=== PATIENT | female | born 1980 | race Asian ===

== ENCOUNTER 2017-04-20 18:43 | Inpatient (IN) | payer MEDICAID, OTHER ==
[~2017-04-20] VITALS: Ht 167.6 cm; Wt 50.0 kg
[~2017-04-20 18:43] MED LIST: QUET100T PO; QUET400T3 PO
[2017-04-20] MEDS ORDERED: ONDANSETRON HCL 4 MG/2 ML VIAL IVP ONE (20:15)
[2017-04-20] MEDS ORDERED: MORPHINE SULFATE 4 MG/ML SYRINGE IVP ONE (20:15)
[2017-04-20 20:21] LABS: RED BLOOD CELL COUNT(AUTO) 3.94 MIL/uL (4.00-5.20); WHITE BLOOD COUNT (AUTO) 7.1 K/uL (4.5-11.0)
[2017-04-20 20:22] LABS: ANION GAP 12 mmol/L (8-16); BASOPHILS % (AUTO) 0.6 % (0.0-2.0); CALCIUM, TOTAL 9.8 mg/dL (8.8-10.5); CARBON DIOXIDE 24 mmol/L (22-29); CHLORIDE 103 mmol/L (98-107); CREATININE 0.62 mg/dL (0.60-1.30); EOSINOPHILS % (AUTO) 0.79 % (1.0-6.0); GLOMERULAR FILTR. RATE CALC > 60 mL/min (>60); HEMATOCRIT 39.9 % (36-46); LYMPHOCYTES % (AUTO) 23.2 % (22.0-44.0); MEAN CORPUSCULAR HEMOGLOBIN 32.9 pg (26.0-34.0); MEAN CORPUSCULAR HGB CONC 32.5 G/dL (31.0-37.0); MEAN CORPUSCULAR VOLUME 101 fL (80-100); MONOCYTES % (AUTO) 7.6 % (2.0-9.0); NEUTROPHILS % (AUTO) 67.8 % (40.0-70.0); PLATELET COUNT (AUTO) 279 K/uL (150-450); POTASSIUM 3.8 mmol/L (3.5-5.1); RED CELL DISTRIBUTION WIDTH 14.1 % (11.5-14.5); SODIUM SERUM 139 mmol/L (136-145); UREA NITROGEN, BLOOD 14 mg/dL (7-18)
[2017-04-20 20:23] LABS: BASOPHILS # (AUTO) 0.04 K/uL (0.00-0.20); EOSINOPHILS # (AUTO) 0.06 K/uL (0.00-0.70); LYMPHOCYTES # (AUTO) 1.6 K/uL (1.0-4.8); MONOCYTES # (AUTO) 0.5 K/uL (0.1-1.0); NEUTROPHILS # (AUTO) 4.8 K/uL (1.8-7.7); RBC MORPHOLOGY COMMENT ABNORMAL RBC MORPH
[2017-04-20 20:29] LABS: ALANINE AMINOTRANSFERASE 13 U/L (12-78); ALBUMIN 4.4 g/dL (3.4-5.0); ASPARTATE AMINOTRANSFERASE 21 U/L (15-37); BILIRUBIN,TOTAL 0.4 mg/dL (0.1-1.0); TOTAL PROTEIN, SERUM 8.2 g/dL (6.4-8.2)
[2017-04-20] MEDS ORDERED: QUET100T PO (20:37)
[2017-04-20] MEDS ORDERED: LIDO700A15 TD (20:42)
[2017-04-20] MEDS ORDERED: TRAM50TA4 PO (20:42)
[2017-04-20] MEDS ORDERED: DOCU250C91 PO (20:42)
[2017-04-20] MEDS ORDERED: MULT-412 PO (20:42)
[2017-04-20 21:12] LABS: APPEARANCE,URINE CLEAR (CLEAR); GLUCOSE, URINE (UA) NEGATIVE (NEGATIVE); KETONES,URINE NEGATIVE (NEGATIVE); LEUKOCYTE ESTERASE ,URINE NEGATIVE (NEGATIVE); OCCULT BLOOD,URINE NEGATIVE (NEGATIVE); PH,URINE 5.5 (5.0-8.0); PROTEIN,URINE NEGATIVE (NEGATIVE)
[2017-04-20 21:20] LABS: ADD UA MICROSCOPIC NO
[2017-04-20] MEDS ORDERED: HYDROCODONE/ACETAMINOPHEN 5-325 MG TABLET PO PRN (21:30)
[2017-04-20] MEDS ORDERED: ACETAMINOPHEN 325 MG TABLET PO PRN (21:30)
[2017-04-20] MEDS ORDERED: 0.9% SODIUM CHLORIDE 10 ML SYRINGE IVP PRN (21:30)
[2017-04-20 22:00] VITALS: BP 106/66
[2017-04-20] MEDS ORDERED: INFLUENZA VIRUS VACCINE QVS 2017-18 (3YR+)/PF 60 MCG/0.5 ML SYRINGE IM ONE (22:15)
[2017-04-20] MEDS: MORPHINE SULFATE 2 MG/ML SYRINGE IVP PRN ×2 (22:21→22:23)
[2017-04-20] MEDS ORDERED: LIDOCAINE HCL 5% TRANSDERMAL PATCH TD SCH (23:00)
[2017-04-20] MEDS ORDERED: TraMADol HCL 50 MG TABLET PO PRN (23:00)
[2017-04-21] MEDS: QUEtiapine FUMARATE 100 MG TABLET PO SCH ×2 (00:09→20:44)
[2017-04-21] MEDS ORDERED: 0.9% SODIUM CHLORIDE 10 ML SYRINGE IVP PRN (02:15)
[2017-04-21 04:34] VITALS: BP 97/55
[2017-04-21 06:16] LABS: BASOPHILS % (AUTO) 0.7 % (0.0-2.0); EOSINOPHILS % (AUTO) 2.5 % (1.0-6.0); HEMOGLOBIN 11.9 g/dL (12.0-16.0); LYMPHOCYTES # (AUTO) 1.7 K/uL (1.0-4.8); LYMPHOCYTES % (AUTO) 33.7 % (22.0-44.0); MEAN CORPUSCULAR HEMOGLOBIN 33.8 pg (26.0-34.0); MEAN CORPUSCULAR HGB CONC 33.9 G/dL (31.0-37.0); MEAN CORPUSCULAR VOLUME 100 fL (80-100); MONOCYTES # (AUTO) 0.5 K/uL (0.1-1.0); MONOCYTES % (AUTO) 8.8 % (2.0-9.0); NEUTROPHILS # (AUTO) 2.8 K/uL (1.8-7.7); NEUTROPHILS % (AUTO) 54.3 % (40.0-70.0); PLATELET COUNT (AUTO) 234 K/uL (150-450); RED CELL DISTRIBUTION WIDTH 13.7 % (11.5-14.5); WHITE BLOOD COUNT (AUTO) 5.2 K/uL (4.5-11.0)
[2017-04-21 06:47] LABS: ALANINE AMINOTRANSFERASE 17 U/L (12-78); ALBUMIN 3.7 g/dL (3.4-5.0); ANION GAP 7 mmol/L (8-16); ASPARTATE AMINOTRANSFERASE 19 U/L (15-37); BILIRUBIN,TOTAL 0.5 mg/dL (0.1-1.0); CALCIUM, TOTAL 9.1 mg/dL (8.8-10.5); CARBON DIOXIDE 29 mmol/L (22-29); CHLORIDE 104 mmol/L (98-107); CREATININE 0.72 mg/dL (0.60-1.30); GLOMERULAR FILTR. RATE CALC > 60 mL/min (>60); POTASSIUM 3.7 mmol/L (3.5-5.1); SODIUM SERUM 140 mmol/L (136-145); TOTAL PROTEIN, SERUM 6.8 g/dL (6.4-8.2); UREA NITROGEN, BLOOD 13 mg/dL (7-18)
[2017-04-21 08:05] VITALS: BP 107/55
[2017-04-21] MEDS: DOCUSATE SODIUM 250 MG CAPSULE PO SCH ×2 (09:03→20:44)
[2017-04-21] MEDS: LIDOCAINE HCL 5% TRANSDERMAL PATCH TD SCH (09:03)
[2017-04-21] MEDS: MULTIVITAMINS WITH MINERALS, THERAPEUTIC TABLET PO SCH (09:03)
[2017-04-21 12:15] VITALS: BP 97/59
[2017-04-21 17:50] VITALS: BP 88/44
[2017-04-21 19:05] VITALS: BP 86/48
[2017-04-21] MEDS: -LIDODERM PATCH NOTE- MISC SCH ×2 (20:51)
[2017-04-21 23:34] VITALS: BP 102/56
[2017-04-22 04:47] VITALS: BP 95/65
[2017-04-22 05:59] LABS: BASOPHILS % (AUTO) 0.5 % (0.0-2.0); EOSINOPHILS % (AUTO) 2.9 % (1.0-6.0); HEMATOCRIT 36.4 % (36-46); HEMOGLOBIN 12.1 g/dL (12.0-16.0); LYMPHOCYTES # (AUTO) 1.7 K/uL (1.0-4.8); LYMPHOCYTES % (AUTO) 35.2 % (22.0-44.0); MEAN CORPUSCULAR HEMOGLOBIN 33.7 pg (26.0-34.0); MEAN CORPUSCULAR HGB CONC 33.3 G/dL (31.0-37.0); MEAN CORPUSCULAR VOLUME 101 fL (80-100); MONOCYTES # (AUTO) 0.5 K/uL (0.1-1.0); MONOCYTES % (AUTO) 9.8 % (2.0-9.0); NEUTROPHILS # (AUTO) 2.5 K/uL (1.8-7.7); NEUTROPHILS % (AUTO) 51.6 % (40.0-70.0); PLATELET COUNT (AUTO) 244 K/uL (150-450); RED CELL DISTRIBUTION WIDTH 13.8 % (11.5-14.5); WHITE BLOOD COUNT (AUTO) 4.8 K/uL (4.5-11.0)
[2017-04-22 07:59] VITALS: BP 106/50
[2017-04-22] MEDS: LIDOCAINE HCL 5% TRANSDERMAL PATCH TD SCH ×2 (09:00→09:25)
[2017-04-22 09:16] LABS: RBC MORPHOLOGY COMMENT ABNORMAL RBC MORPH
[2017-04-22] MEDS: DOCUSATE SODIUM 250 MG CAPSULE PO SCH ×2 (09:24→21:03)
[2017-04-22] MEDS: MULTIVITAMINS WITH MINERALS, THERAPEUTIC TABLET PO SCH (09:24)
[2017-04-22 11:00] VITALS: BP 101/59
[2017-04-22 16:13] VITALS: BP 94/56
[2017-04-22 19:35] VITALS: BP 116/73
[2017-04-22] MEDS: -LIDODERM PATCH NOTE- MISC SCH ×2 (21:00)
[2017-04-22] MEDS: QUEtiapine FUMARATE 300 MG TABLET PO SCH (21:03)
[2017-04-23] VITALS (7 sets, daily range): BP systolic 86–126; BP diastolic 48–55
[2017-04-23] MEDS: MUPIROCIN CALCIUM 2% 22 GM OINTMENT NASAL SCH ×3 (00:38→20:41)
[2017-04-23] MEDS: MULTIVITAMINS WITH MINERALS, THERAPEUTIC TABLET PO SCH (08:10)
[2017-04-23] MEDS: DOCUSATE SODIUM 250 MG CAPSULE PO SCH ×2 (08:10→20:41)
[2017-04-23] MEDS: LIDOCAINE HCL 5% TRANSDERMAL PATCH TD SCH (08:14)
[2017-04-23] MEDS: QUEtiapine FUMARATE 300 MG TABLET PO SCH (20:41)
[2017-04-23] MEDS: -LIDODERM PATCH NOTE- MISC SCH ×2 (20:47)
[2017-04-24] VITALS (7 sets, daily range): BP systolic 86–99; BP diastolic 47–62
[2017-04-24] MEDS: LIDOCAINE HCL 5% TRANSDERMAL PATCH TD SCH (09:00)
[2017-04-24] MEDS: MULTIVITAMINS WITH MINERALS, THERAPEUTIC TABLET PO SCH (12:15)
[2017-04-24] MEDS: MUPIROCIN CALCIUM 2% 22 GM OINTMENT NASAL SCH ×2 (12:15→19:55)
[2017-04-24] MEDS: DOCUSATE SODIUM 250 MG CAPSULE PO SCH ×2 (12:16→19:52)
[2017-04-24] MEDS ORDERED: SODIUM CHLORIDE 0.9% 1,000 ML IV ONE (15:24)
[2017-04-24] MEDS ORDERED: SODIUM CHLORIDE 0.9% 500 ML IV ONE (15:30)
[2017-04-24] MEDS: QUEtiapine FUMARATE 300 MG TABLET PO SCH (19:52)
[2017-04-24] MEDS: -LIDODERM PATCH NOTE- MISC SCH ×2 (19:55)
[2017-04-24] MEDS: SODIUM CHLORIDE 0.45% 1,000 ML IV SCH (23:41)
[2017-04-25 04:50] VITALS: BP 88/51
[2017-04-25 06:39] LABS: ANION GAP 7 mmol/L (8-16); CALCIUM, TOTAL 8.7 mg/dL (8.8-10.5); CARBON DIOXIDE 25 mmol/L (22-29); CHLORIDE 107 mmol/L (98-107); CREATININE 0.57 mg/dL (0.60-1.30); GLOMERULAR FILTR. RATE CALC > 60 mL/min (>60); POTASSIUM 3.7 mmol/L (3.5-5.1); SODIUM SERUM 139 mmol/L (136-145); UREA NITROGEN, BLOOD 9 mg/dL (7-18)
[2017-04-25 06:42] LABS: BASOPHILS % (AUTO) 0.6 % (0.0-2.0); EOSINOPHILS % (AUTO) 7.5 % (1.0-6.0); HEMATOCRIT 35.4 % (36-46); HEMOGLOBIN 11.9 g/dL (12.0-16.0); LYMPHOCYTES # (AUTO) 1.5 K/uL (1.0-4.8); LYMPHOCYTES % (AUTO) 29.7 % (22.0-44.0); MEAN CORPUSCULAR HEMOGLOBIN 33.9 pg (26.0-34.0); MEAN CORPUSCULAR HGB CONC 33.7 G/dL (31.0-37.0); MEAN CORPUSCULAR VOLUME 101 fL (80-100); MONOCYTES # (AUTO) 0.3 K/uL (0.1-1.0); MONOCYTES % (AUTO) 6.7 % (2.0-9.0); NEUTROPHILS # (AUTO) 2.8 K/uL (1.8-7.7); NEUTROPHILS % (AUTO) 55.5 % (40.0-70.0); PLATELET COUNT (AUTO) 232 K/uL (150-450); RED BLOOD CELL COUNT(AUTO) 3.53 MIL/uL (4.00-5.20); RED CELL DISTRIBUTION WIDTH 13.7 % (11.5-14.5)
[2017-04-25 07:10] LABS: RBC MORPHOLOGY COMMENT ABNORMAL RBC MORPH
[2017-04-25] MEDS: DOCUSATE SODIUM 250 MG CAPSULE PO SCH ×2 (07:41→19:40)
[2017-04-25] MEDS: MULTIVITAMINS WITH MINERALS, THERAPEUTIC TABLET PO SCH (07:41)
[2017-04-25] MEDS: LIDOCAINE HCL 5% TRANSDERMAL PATCH TD SCH (07:41)
[2017-04-25] MEDS: SODIUM CHLORIDE 0.45% 1,000 ML IV SCH ×2 (07:41→15:47)
[2017-04-25] MEDS: MUPIROCIN CALCIUM 2% 22 GM OINTMENT NASAL SCH ×2 (07:42→19:42)
[2017-04-25 07:49] VITALS: BP 88/50
[2017-04-25 11:14] VITALS: BP 91/56
[2017-04-25 16:11] VITALS: BP 95/57
[2017-04-25 19:37] VITALS: BP 98/60
[2017-04-25] MEDS: QUEtiapine FUMARATE 300 MG TABLET PO SCH (19:40)
[2017-04-25] MEDS: -LIDODERM PATCH NOTE- MISC SCH ×2 (19:42)
[2017-04-25 23:47] VITALS: BP 108/69
[2017-04-26] MEDS: SODIUM CHLORIDE 0.45% 1,000 ML IV SCH ×2 (00:23→08:09)
[2017-04-26 05:22] VITALS: BP 86/54
[2017-04-26 07:58] VITALS: BP 103/63
[2017-04-26] MEDS: MUPIROCIN CALCIUM 2% 22 GM OINTMENT NASAL SCH (09:00)
[2017-04-26] MEDS: DOCUSATE SODIUM 250 MG CAPSULE PO SCH (10:48)
[2017-04-26] MEDS: LIDOCAINE HCL 5% TRANSDERMAL PATCH TD SCH (10:48)
[2017-04-26] MEDS: MULTIVITAMINS WITH MINERALS, THERAPEUTIC TABLET PO SCH (10:48)
[2017-04-26 16:42] VITALS: BP 105/62
== END 2017-04-26 18:15 | DRG 207 ==
LOC: EMS 18:44 → 4E 20:35 → 6N 04-21 18:41
PROVIDERS: ADMIT Family Medicine; ATTEND Family Medicine
DX: I95.9 Hypotension, unspecified (principal); I10 Essential (primary) hypertension; S82.899A Other fracture of unspecified lower leg, initial encounter for closed fracture; M43.20 Fusion of spine, site unspecified; F31.9 Bipolar disorder, unspecified; Z91.5 Personal history of self-harm; Z98.1 Arthrodesis status; Z22.322 Carrier or suspected carrier of Methicillin resistant Staphylococcus aureus; Z28.21 Immunization not carried out because of patient refusal; R63.0 Anorexia; Z68.1 Body mass index [BMI] 19.9 or less, adult
CPT/HCPCS: 83735; 87081; 96374; 96375; 97161; 97166; 97530; 97535; 99285; J2270; J2405; J7030

== ENCOUNTER 2019-05-17 10:24 | Inpatient (IN) | payer MEDICAID ==
[~2019-05-17] VITALS: Ht 165.1 cm; Wt 47.7 kg
[~2019-05-17 10:24] MED LIST changes: +DOCU-342 PO; +LIDO700A15 TD; +MULT-412 PO; -QUET400T3 PO; +TRAM50TA4 PO
[2019-05-17 14:19] VITALS: BP 135/70
[2019-05-17] MEDS ORDERED: QUET200T PO (14:37)
[2019-05-17] MEDS ORDERED: HALOPERIDOL 5 MG TABLET PO PRN (14:45)
[2019-05-17] MEDS ORDERED: LORazepam 2 MG TABLET PO PRN (14:45)
[2019-05-17] MEDS ORDERED: ZOLPIDEM TARTRATE 10 MG TABLET PO PRN (14:45)
[2019-05-17] MEDS ORDERED: INFLUENZA VIRUS VACCINE QVS 2019-20 (3YR+)/PF 60 MCG/0.5 ML SYRINGE IM ONE (15:30)
[2019-05-17 16:25] VITALS: BP 125/80
[2019-05-17] MEDS: QUEtiapine FUMARATE 200 MG TABLET PO SCH (20:12)
[2019-05-18 00:20] VITALS: BP 102/63
[2019-05-18 08:20] VITALS: BP 104/63
[2019-05-18] MEDS: ESCITALOPRAM OXALATE 10 MG TABLET PO SCH (08:29)
[2019-05-18 09:27] LABS: BASOPHILS % (AUTO) 0.9 % (0.0-2.0); EOSINOPHILS % (AUTO) 1.2 % (1.0-6.0); HEMATOCRIT 38.4 % (36-46); HEMOGLOBIN 12.9 g/dL (12.0-16.0); LYMPHOCYTES # (AUTO) 1.3 K/uL (1.0-4.8); LYMPHOCYTES % (AUTO) 33.3 % (22.0-44.0); MEAN CORPUSCULAR HEMOGLOBIN 34.2 pg (26.0-34.0); MEAN CORPUSCULAR HGB CONC 33.5 G/dL (31.0-37.0); MEAN CORPUSCULAR VOLUME 102 fL (80-100); MONOCYTES # (AUTO) 0.5 K/uL (0.1-1.0); MONOCYTES % (AUTO) 12.2 % (2.0-9.0); NEUTROPHILS # (AUTO) 2.1 K/uL (1.8-7.7); NEUTROPHILS % (AUTO) 52.4 % (40.0-70.0); PLATELET COUNT (AUTO) 230 K/uL (150-450); RED BLOOD CELL COUNT(AUTO) 3.75 MIL/uL (4.00-5.20); RED CELL DISTRIBUTION WIDTH 13.9 % (11.5-14.5)
[2019-05-18 09:47] LABS: HEMOGLOBIN A1C 4.5 % (4.5-6.2)
[2019-05-18 10:40] LABS: ALANINE AMINOTRANSFERASE 10 U/L (12-78); ALBUMIN 3.2 g/dL (3.4-5.0); ALKALINE PHOSPHATASE 43 U/L (46-116); ANION GAP 10 mmol/L (8-16); ASPARTATE AMINOTRANSFERASE 19 U/L (15-37); BILIRUBIN,TOTAL 0.3 mg/dL (0.1-1.0); CALCIUM, TOTAL 8.7 mg/dL (8.8-10.5); CARBON DIOXIDE 25 mmol/L (22-29); CHLORIDE 104 mmol/L (98-107); CHOL/HDL RATIO 2.6 (3.9-5.7); CHOLESTEROL 199 mg/dL (131-200); CREATININE 0.62 mg/dL (0.60-1.30); FREE T4 (FREE THYROXINE) 0.91 ng/dL (0.76-1.46); GLOMERULAR FILTR. RATE CALC > 60 mL/min (>60); GLUCOSE,RANDOM 69 mg/dL (70-110); HCG,QUANTITATIVE < 1 mIU/mL (0-6); HDL CHOLESTEROL 78 mg/dL (40-60); LDL CHOL (CALC.) 112 mg/dL (0-130); POTASSIUM 3.8 mmol/L (3.5-5.1); SODIUM SERUM 139 mmol/L (136-145); TOTAL PROTEIN, SERUM 6.6 g/dL (6.4-8.2); TRIGLYCERIDES 44 mg/dL (15-150); UREA NITROGEN, BLOOD 11 mg/dL (7-18)
[2019-05-18] MEDS ORDERED: LOPERAMIDE HCL 2 MG CAPSULE PO PRN (11:30)
[2019-05-18] MEDS ORDERED: DOCUSATE SODIUM 100 MG CAPSULE PO PRN (11:30)
[2019-05-18] MEDS ORDERED: PETROLATUM,WHITE 28 GM JELLY TP PRN (11:30)
[2019-05-18] MEDS ORDERED: GuaiFENesin/D-METHORPHAN [SUGAR-FREE] 200-20MG/10 ML SYRUP UDCUP PO PRN (11:30)
[2019-05-18] MEDS ORDERED: ONDANSETRON HCL 4 MG TABLET PO PRN (11:30)
[2019-05-18] MEDS ORDERED: ACETAMINOPHEN 325 MG TABLET PO PRN (11:30)
[2019-05-18] MEDS ORDERED: ALBUTEROL SULFATE HFA 90 MCG/PUFF 8 GM INHALER IH PRN (11:30)
[2019-05-18] MEDS ORDERED: MAG HYDROX/AL HYDROX/SIMETH ES 30 ML SUSPENSION UDCUP PO PRN (11:30)
[2019-05-18] MEDS ORDERED: CloNIDine HCL 0.1 MG TABLET PO PRN (11:30)
[2019-05-18] MEDS ORDERED: NICOTINE 14 MG/24 HOUR PATCH TD PRN (11:30)
[2019-05-18] MEDS ORDERED: IBUPROFEN 400 MG TABLET PO PRN (11:30)
[2019-05-18 16:14] VITALS: BP 114/72
[2019-05-18] MEDS: QUEtiapine FUMARATE 200 MG TABLET PO SCH (20:10)
[2019-05-19 00:13] VITALS: BP 122/73
[2019-05-19 08:08] VITALS: BP 114/80
[2019-05-19] MEDS: ESCITALOPRAM OXALATE 10 MG TABLET PO SCH (08:09)
[2019-05-19 16:09] VITALS: BP 109/67
[2019-05-19] MEDS: QUEtiapine FUMARATE 200 MG TABLET PO SCH (20:13)
[2019-05-20 06:51] VITALS: BP 111/74
[2019-05-20] MEDS: ESCITALOPRAM OXALATE 10 MG TABLET PO SCH (08:19)
[2019-05-20] MEDS: MAGNESIUM HYDROXIDE SUSPENSION 30 ML UDCUP PO PRN (08:29)
[2019-05-20 08:30] VITALS: BP 104/58
[2019-05-20 09:27] LABS: BILIRUBIN,URINE NEGATIVE (NEGATIVE); GLUCOSE, URINE (UA) NEGATIVE (NEGATIVE); KETONES,URINE NEGATIVE (NEGATIVE); LEUKOCYTE ESTERASE ,URINE NEGATIVE (NEGATIVE); NITRATE,URINE NEGATIVE (NEGATIVE); OCCULT BLOOD,URINE NEGATIVE (NEGATIVE); PH,URINE 6.5 (5.0-8.0); PROTEIN,URINE NEGATIVE (NEGATIVE); UROBILINOGEN,URINE 0.2 mg/dL (<=1.0)
[2019-05-20 09:36] LABS: APPEARANCE,URINE CLEAR (CLEAR)
[2019-05-20 16:24] VITALS: BP 101/68
[2019-05-20] MEDS: QUEtiapine FUMARATE 200 MG TABLET PO SCH (20:29)
[2019-05-21 06:14] VITALS: BP 102/61
[2019-05-21 08:52] VITALS: BP 102/66
[2019-05-21] MEDS: ESCITALOPRAM OXALATE 10 MG TABLET PO SCH (09:09)
[2019-05-21] MEDS ORDERED: ESCITALOPRAM OXALATE 10 MG TABLET PO ONE (11:30)
[2019-05-21 16:33] VITALS: BP 108/74
[2019-05-21] MEDS: QUEtiapine FUMARATE 200 MG TABLET PO SCH (20:31)
[2019-05-22 06:48] VITALS: BP 112/72
[2019-05-22 08:32] VITALS: BP 108/72
[2019-05-22] MEDS: ESCITALOPRAM OXALATE 20 MG TABLET PO SCH (08:37)
[2019-05-22 16:18] VITALS: BP 93/60
[2019-05-22] MEDS: QUEtiapine FUMARATE 200 MG TABLET PO SCH (20:37)
[2019-05-23 05:27] VITALS: BP 100/60
[2019-05-23 08:18] VITALS: BP 102/61
[2019-05-23] MEDS: ESCITALOPRAM OXALATE 20 MG TABLET PO SCH (08:42)
[2019-05-23 16:27] VITALS: BP 114/69
[2019-05-23] MEDS: QUEtiapine FUMARATE 200 MG TABLET PO SCH (20:22)
[2019-05-24 00:18] VITALS: BP 129/67
[2019-05-24 08:09] VITALS: BP 119/72
[2019-05-24] MEDS: ESCITALOPRAM OXALATE 20 MG TABLET PO SCH (08:30)
[2019-05-24] MEDS: OLANZapine 2.5 MG TABLET PO SCH (16:26)
[2019-05-24 16:28] VITALS: BP 108/80
[2019-05-24] MEDS: QUEtiapine FUMARATE 200 MG TABLET PO SCH (20:14)
[2019-05-25 06:50] VITALS: BP 103/62
[2019-05-25 08:18] VITALS: BP 116/80
[2019-05-25] MEDS: OLANZapine 2.5 MG TABLET PO SCH ×2 (08:25→16:33)
[2019-05-25] MEDS: ESCITALOPRAM OXALATE 20 MG TABLET PO SCH (08:25)
[2019-05-25 16:10] VITALS: BP 108/70
[2019-05-25] MEDS: QUEtiapine FUMARATE 200 MG TABLET PO SCH (20:28)
[2019-05-26 05:54] VITALS: BP 115/77
[2019-05-26 08:17] VITALS: BP 102/61
[2019-05-26] MEDS: MULTIVITAMINS WITH MINERALS, THERAPEUTIC TABLET PO SCH (08:36)
[2019-05-26] MEDS: OLANZapine 2.5 MG TABLET PO SCH ×2 (08:36→16:45)
[2019-05-26] MEDS: ESCITALOPRAM OXALATE 20 MG TABLET PO SCH (08:36)
[2019-05-26 16:37] VITALS: BP 102/78
[2019-05-26] MEDS: QUEtiapine FUMARATE 200 MG TABLET PO SCH (20:45)
[2019-05-27 06:25] VITALS: BP 109/63
[2019-05-27] MEDS: MULTIVITAMINS WITH MINERALS, THERAPEUTIC TABLET PO SCH (08:14)
[2019-05-27] MEDS: ESCITALOPRAM OXALATE 20 MG TABLET PO SCH (08:14)
[2019-05-27] MEDS: OLANZapine 2.5 MG TABLET PO SCH ×2 (08:14→16:07)
[2019-05-27 08:26] VITALS: BP 121/60
[2019-05-27] MEDS: MAGNESIUM HYDROXIDE SUSPENSION 30 ML UDCUP PO PRN (13:26)
[2019-05-27 16:25] VITALS: BP 113/68
[2019-05-27] MEDS: QUEtiapine FUMARATE 200 MG TABLET PO SCH (20:16)
[2019-05-28 06:25] VITALS: BP 103/64
[2019-05-28 08:15] VITALS: BP 100/52
[2019-05-28] MEDS: ESCITALOPRAM OXALATE 20 MG TABLET PO SCH (08:25)
[2019-05-28] MEDS: OLANZapine 2.5 MG TABLET PO SCH (08:25)
[2019-05-28] MEDS: MULTIVITAMINS WITH MINERALS, THERAPEUTIC TABLET PO SCH (08:25)
[2019-05-28] MEDS ORDERED: ESCI20TA PO (12:47)
[2019-05-28] MEDS ORDERED: OLAN2.5T3 PO (12:47)
== END 2019-05-28 13:15 | disposition home or self-care (01) | DRG 751 ==
LOC: B2S 15:20 → B3A 05-24 10:55
PROVIDERS: ADMIT Psychiatry & Neurology Psychiatry; ATTEND Psychiatry & Neurology Psychiatry
DX: F33.2 Major depressive disorder, recurrent severe without psychotic features (principal); R45.851 Suicidal ideations; D72.819 Decreased white blood cell count, unspecified; E78.5 Hyperlipidemia, unspecified; M54.9 Dorsalgia, unspecified; F19.10 Other psychoactive substance abuse, uncomplicated; G89.29 Other chronic pain; F10.10 Alcohol abuse, uncomplicated; Z79.899 Other long term (current) drug therapy; Z86.14 Personal history of Methicillin resistant Staphylococcus aureus infection
CPT/HCPCS: 83036; 84436; 84439; 87081

== ENCOUNTER 2020-09-03 22:39 | Inpatient (IN) | payer MEDICAID ==
[~2020-09-03] VITALS: Ht 167.6 cm; Wt 51.0 kg
[~2020-09-03 22:39] MED LIST changes: -DOCU-342 PO; +ESCI20TA87 PO; -LIDO700A15 TD; -MULT-412 PO; +OLAN2.5T3 PO; -QUET100T PO; +QUET200T PO; -TRAM50TA4 PO
[2020-09-04] MEDS ORDERED: LORazepam 2 MG TABLET PO PRN (04:15)
[2020-09-04] MEDS ORDERED: HALOPERIDOL 5 MG TABLET PO PRN (04:15)
[2020-09-04 05:11] VITALS: BP 109/68
[2020-09-04] MEDS ORDERED: ONDANSETRON HCL 4 MG TABLET PO PRN (08:45)
[2020-09-04] MEDS ORDERED: MAG HYDROX/AL HYDROX/SIMETH ES 30 ML SUSPENSION UDCUP PO PRN (08:45)
[2020-09-04] MEDS ORDERED: BACITRACIN 28 GM OINTMENT TP PRN (08:45)
[2020-09-04] MEDS ORDERED: IBUPROFEN 600 MG TABLET PO PRN (08:45)
[2020-09-04] MEDS ORDERED: BENZOCAINE/MENTHOL LOZENGE PO PRN (08:45)
[2020-09-04] MEDS ORDERED: OMEPRAZOLE 20 MG CAPSULE PO PRN (08:45)
[2020-09-04] MEDS ORDERED: ALBUTEROL SULFATE HFA 90 MCG/PUFF 8 GM INHALER IH PRN (08:45)
[2020-09-04] MEDS ORDERED: ACETAMINOPHEN 325 MG TABLET PO PRN (08:45)
[2020-09-04] MEDS ORDERED: PETROLATUM,WHITE 28 GM JELLY TP PRN (08:45)
[2020-09-04] MEDS ORDERED: DOCUSATE SODIUM 100 MG CAPSULE PO PRN (08:45)
[2020-09-04] MEDS ORDERED: LOPERAMIDE HCL 2 MG CAPSULE PO PRN (08:45)
[2020-09-04] MEDS ORDERED: MAGNESIUM HYDROXIDE SUSPENSION 30 ML UDCUP PO PRN (08:45)
[2020-09-04] MEDS ORDERED: CloNIDine HCL 0.1 MG TABLET PO PRN (08:45)
[2020-09-04 16:21] VITALS: BP 105/67
[2020-09-04] MEDS: ZOLPIDEM TARTRATE 10 MG TABLET PO PRN (21:40)
[2020-09-05 05:22] VITALS: BP 110/70
[2020-09-05 08:12] VITALS: BP 114/67
[2020-09-05 16:06] VITALS: BP 116/72
[2020-09-05] MEDS: ZOLPIDEM TARTRATE 10 MG TABLET PO PRN (20:35)
[2020-09-06 00:19] VITALS: BP 106/62
[2020-09-06] MEDS: FOLIC ACID 1 MG TABLET PO SCH (08:13)
[2020-09-06] MEDS: MULTIVITAMINS WITH MINERALS, THERAPEUTIC TABLET PO SCH (08:13)
[2020-09-06] MEDS: THIAMINE 100 MG TABLET PO SCH (08:13)
[2020-09-06 08:24] VITALS: BP 104/75
[2020-09-06] MEDS: VENLAFAXINE HCL 150 MG ER CAPSULE PO SCH (09:53)
[2020-09-06 16:10] VITALS: BP 110/68
[2020-09-06] MEDS: QUEtiapine FUMARATE 300 MG TABLET PO SCH (20:07)
[2020-09-07 01:07] VITALS: BP 104/71
[2020-09-07 08:03] VITALS: BP 100/77
[2020-09-07] MEDS: THIAMINE 100 MG TABLET PO SCH (08:08)
[2020-09-07] MEDS: MULTIVITAMINS WITH MINERALS, THERAPEUTIC TABLET PO SCH (08:08)
[2020-09-07] MEDS: VENLAFAXINE HCL 150 MG ER CAPSULE PO SCH (08:08)
[2020-09-07] MEDS: FOLIC ACID 1 MG TABLET PO SCH (08:08)
[2020-09-07 16:00] VITALS: BP 103/73
[2020-09-07] MEDS: QUEtiapine FUMARATE 300 MG TABLET PO SCH (20:30)
[2020-09-08 06:11] VITALS: BP 106/66
[2020-09-08 08:13] VITALS: BP 100/73
[2020-09-08] MEDS: THIAMINE 100 MG TABLET PO SCH (08:51)
[2020-09-08] MEDS: MULTIVITAMINS WITH MINERALS, THERAPEUTIC TABLET PO SCH (08:51)
[2020-09-08] MEDS: FOLIC ACID 1 MG TABLET PO SCH (08:51)
[2020-09-08] MEDS: VENLAFAXINE HCL 150 MG ER CAPSULE PO SCH (08:52)
[2020-09-08] MEDS ORDERED: QUET300T2 PO (11:04)
[2020-09-08] MEDS ORDERED: VENL-68 PO (11:05)
== END 2020-09-08 13:09 | disposition home or self-care (01) | DRG 754 ==
LOC: B2S 09-04 03:16
PROVIDERS: ADMIT Psychiatry & Neurology Psychiatry; ATTEND Psychiatry & Neurology Psychiatry
DX: F32.9 Major depressive disorder, single episode, unspecified (principal); F41.9 Anxiety disorder, unspecified; R45.851 Suicidal ideations; F17.200 Nicotine dependence, unspecified, uncomplicated; F10.10 Alcohol abuse, uncomplicated; Y90.9 Presence of alcohol in blood, level not specified; F19.10 Other psychoactive substance abuse, uncomplicated; K59.00 Constipation, unspecified; G47.00 Insomnia, unspecified
CPT/HCPCS: Z7610